=== PATIENT | female | born 1970 | race Hispanic/Latino ===

== ENCOUNTER 2018-09-04 09:00 | Outpatient (RCR) | payer MEDICARE | END 2018-09-05 | LOC: PT 09:00 | PROVIDERS: ATTEND Orthopaedic Surgery | DX: M75.41 Impingement syndrome of right shoulder (principal); M75.42 Impingement syndrome of left shoulder; M62.81 Muscle weakness (generalized); M25.511 Pain in right shoulder; M25.512 Pain in left shoulder ==

== ENCOUNTER 2019-09-02 09:00 | Outpatient (RCR) | payer MEDICARE | END 2019-09-06 | LOC: PT 09:00 | PROVIDERS: ATTEND Specialist | DX: M75.52 Bursitis of left shoulder (principal); M75.51 Bursitis of right shoulder; S83.242A Other tear of medial meniscus, current injury, left knee, initial encounter ==

== ENCOUNTER 2019-09-09 09:00 | Outpatient (RCR) | payer MEDICARE | END 2019-10-06 | LOC: PT 09:00 | PROVIDERS: ATTEND Specialist | DX: M75.52 Bursitis of left shoulder (principal); M75.51 Bursitis of right shoulder ==